=== PATIENT | female | born 1945 | race Two or more races ===

== ENCOUNTER 2023-10-30 22:45 | Emergency (ER) | payer OTHER ==
[~2023-10-30] VITALS: Ht 162.6 cm; Wt 70.3 kg
[2023-10-31 01:24] LABS: HEMATOCRIT 37.1 % (36.0-45.00); HEMOGLOBIN 12.7 g/dL (12.0-15.00); MEAN CORPUSCULAR HEMOGLOBIN 30.4 pg (27.00-32.0); MEAN CORPUSCULAR HGB CONC 34.2 g/dl (32.0-36.0); PLATELET COUNT 220 K/uL (150-450); RED BLOOD COUNT 4.17 M/uL (4.00-6.00); RED CELL DISTRIBUTION WIDTH 13.5 % (11.5-14.5)
[2023-10-31 01:52] LABS: INR < 0.93; PARTIAL THROMBOPLASTIN TIME 26.1 SECONDS (22.0-34.0); PROTHROMBIN TIME 9.8 SECONDS (9.0-11.5)
[2023-10-31 02:35] LABS: ALBUMIN 3.8 gm/dL (3.4-5.0); BILIRUBIN TOTAL 0.33 mg/dL (0.3-1.2); BILIRUBIN,CONJUGATED 0.11 mg/dL (0.0-0.2); BILIRUBIN,UNCONJUGATED 0.22 mg/dL (0.0-0.6); CALCIUM 8.7 mg/dL (8.5-10.1); CREATININE SERUM 0.79 mg/dL (0.55-1.02); GFR 70.95; GLOBULINA 3.4 G/DL (2.4-3.5); POTASSIUM 3.84 mEq/L (3.5-5.1); TOTAL PROTEIN 7.2 gm/dL (6.4-8.2)
[2023-10-31] MEDS ORDERED: ONDANSETRON ODT4 MG PO (07:52)
[2023-10-31] MEDS ORDERED: LEVSIN/SL0.125 MG SL (07:52)
[2023-10-31] MEDS ORDERED: PEPCID40 MG PO (07:52)
[2023-10-31] MEDS ORDERED: PROTONIX40 MG PO (07:52)
[2023-10-31 08:17] LABS: URINE APPEARANCE Clear; URINE BILIRRUBIN Negative (NEGATIVE); URINE BLOOD Negative; URINE COLOR Yellow; URINE GLUCOSE Negative (NEGATIVE); URINE LEUKOCYTE Negative; URINE NITRATE Negative; URINE PROTEIN Negative (NEGATIVE); URINE UROBILINOGEN 0.2 E.U./dl
[2023-10-31 08:23] LABS: URINE BACTERIA 226.7 uL (0.0-1933); URINE EPITHELIAL CELLS 39.5 uL (0.0-38.8); URINE RBC 23.5 uL (0.0-20.8); URINE WBC 18.3 uL (0.0-23.2)
== END 2023-10-31 08:13 ==
LOC: ER 22:45
PROVIDERS: General Practice
DX: R10.11 Right upper quadrant pain (principal); Z88.2 Allergy status to sulfonamides; R11.2 Nausea with vomiting, unspecified; K80.20 Calculus of gallbladder without cholecystitis without obstruction
CPT/HCPCS: 36415; 76700; 96365; 96366; 96372; 99284; J2250; J2405; J3490; J7030